=== PATIENT | female | born 1970 | race Caucasian/White ===

== ENCOUNTER 2019-08-13 10:06 | Outpatient (CLI) | payer OTHER, SELFPAY ==
[2019-08-13 10:50] LABS: Hemoglobin A1C 5.5 % (<5.7)
[2019-08-13 10:59] LABS: Alanine Aminotransferase 33 U/L (4-35); Aspartate Amino Transferase 25 U/L (14-36); Blood Urea Nitrogen 13 mg/dL (7-17); Calcium 9.5 mg/dL (8.4-10.2); Carbon Dioxide 31 mmol/L (22-30); Chloride 99 mmol/L (98-107); Estimated Glomerular Filt Rate > 60; Glucose 106 mg/dL (65-105); Potassium 4.2 mmol/L (3.4-5.0); Sodium 138 mmol/L (137-145)
[2019-08-13 11:10] LABS: Erythrocyte Sedimentation Rate 16 mm/hr (0-20)
[2019-08-13 11:22] LABS: Free T4 Free Thyroxine 1.11 ng/mL (0.78-2.19)
== END 2019-08-13 10:07 | disposition home or self-care (01) ==
PROVIDERS: PCP Family Medicine; Visit Provider Family Medicine
DX: M79.7 Fibromyalgia (principal); R74.8 Abnormal levels of other serum enzymes; E03.9 Hypothyroidism, unspecified; G89.4 Chronic pain syndrome; R73.01 Impaired fasting glucose; E55.9 Vitamin D deficiency, unspecified; E78.2 Mixed hyperlipidemia
CPT/HCPCS: 36415; 80048; 83036; 84439; 84443; 84450; 84460; 85652